=== PATIENT | female | born 1990 | race Caucasian/White ===

== ENCOUNTER 2016-12-22 13:36 | Emergency (ER) | payer OTHER ==
--- NOTE | ~2016-12-22 | US98 ---
[facility] A Service of [facility] RADIOLOGY TEXT RESULTS PATIENT: IZABELA HART LOCATION: SED : 90 UNIT #: [id number] AGE: [address]: Raven Castano APRN SEX: F ORDER DR: [id number] [place] [id number] E MR#: [id number] Acc #: [id number] NAME: IZABELA HART : 1990 SEX: F STUDY DATE/TIME: 12/22/2016 14:33 UNIT: SED ROOM: STUDY DESCRIPTION: US Pelvic Non-OB Complete Attending Physician: Raven Castano A.P.R.N. Ordering Physician: Raven Castano A.P.R.N. Primary Care Physician: No Primary Care Physician MEDICAL IMAGING REPORT This report is preliminary unless electronic signature is present. EXAM Pelvic ultrasound. DATE OF EXAM 12/22/2016 INDICATIONS Pelvic pain for the past 3 days. Previously placed IUD. Evaluate IUD placement. PROCEDURE Roe-scale, color Doppler imaging of the pelvis via transabdominal and transvaginal approach, COMPARISON None. FINDINGS Transabdominal uterus is anteverted measures 9.5 x 6.1 x 5.7 cm. TRANSVAGINAL: IUD appropriately positioned, endometrial cavity. Endometrium is thin. The right and left ovaries are normal. No pelvic fluid. IMPRESSION IUD appropriately positioned. Otherwise, negative pelvic ultrasound. Dictated by... Delroy Montano M.D. THIS IS AN ELECTRONICALLY VERIFIED REPORT [facility] A Service of [facility] RADIOLOGY TEXT RESULTS PATIENT: IZABELA HART LOCATION: SED : 90 UNIT #: [id number] AGE: [address]: Raven Castano APRN SEX: F ORDER DR: Delroy Montano M.D. at 12/24/2016 6:59 AM EED/jt TD: 12/22/2016 17:21 JOB #: [id number] MEDICAL IMAGING REPORT
[2016-12-22 13:36] LABS: URINE SOURCE CLEAN CATCH
[~2016-12-22 13:36] MED LIST: ALBUTEROL17 GM; BIRTH CONTROL PILL; MIRENA BIRTH CONTROL; NO MEDICATIONS; ORTHO EVRA1 PATCH.WK TOP; PRENATAL MULITV1 TAB PO; RONDEC-DM ORAL30 ML PO; VOLTAREN75 MG PO; ZITHROMAX PO
[2016-12-22 13:39] LABS: URINE APPEARANCE CLEAR; URINE BILIRUBIN NEG (NEG); URINE BLOOD NEG (NEG); URINE COLOR YELLOW; URINE GLUCOSE NEG (NORM); URINE KETONE NEG (NEG); URINE LEUKOCYTE ESTERASE NEG (NEG); URINE NITRATE NEG (NEG); URINE PROTEIN NEG (NEG)
[2016-12-22 13:45] LABS: MICRO INDICATED? NO
[2016-12-26 12:35] LABS: CHLAMYDIA TRACH Not Detected (Not Detected); N GONOR Not Detected (Not Detected)
== END 2016-12-22 15:43 | disposition home or self-care (01) ==
LOC: SED 13:36
PROVIDERS: Nurse Practitioner
DX: R10.2 Pelvic and perineal pain (principal); F17.210 Nicotine dependence, cigarettes, uncomplicated
CPT/HCPCS: 76830; 76856; 81003; 84703; 87210; 87491; 87591; 87808; 87905; 99284